=== PATIENT | male | born 1960 | race Caucasian/White ===

== ENCOUNTER → 2020-04-22 13:57 | Outpatient (BNVA) | payer OTHER, SELFPAY | PROVIDERS: PCP Internal Medicine Geriatric Medicine; Visit Provider Internal Medicine | DX: J44.1 Chronic obstructive pulmonary disease with (acute) exacerbation (principal); R91.1 Solitary pulmonary nodule; Z91.89 Other specified personal risk factors, not elsewhere classified | CPT/HCPCS: 99202 ==